=== PATIENT | male | born 1970 | race Caucasian/White ===

== ENCOUNTER 2019-09-01 16:32 | Emergency (ER) | payer BC, SELFPAY ==
[~2019-09-01] VITALS: Ht 177.8 cm; Wt 77.1 kg
--- NOTE | 2019-09-01 16:32 | NUR ---
Patient to ER bed tent for evaluation.
--- NOTE | 2019-09-01 16:33 | NUR ---
Patient is a 49 year old male that is awake, alert, and oriented x4. He denies previous medical history and reports only eye surgery as a youth. Patient arrived after being told by his PCP to be evaluated. Patient reports returning from [place] 2 weeks ago and that he has had flu symptoms with no relief x3 weeks. Patient was recently tested by his PCP and told he was positive for Influenza A and B. Patient is complaining of intermittent SOB and subjective fever going as high as 98.9 that was relieved by ice packs. Patient also reports loss of taste and smell x2 weeks, intermittent left sided flank pain that feels like a cramp today. Pain is currently at 0/10. Vitals are WNL, no signs or symptoms of distress noted.
[2019-09-01 16:36] VITALS: BP_SYST 152
--- NOTE | 2019-09-01 17:12 | NUR ---
Patient ambulated to radiology, accompanied by tech.
--- NOTE | 2019-09-01 17:20 | NUR ---
Returned from radiology, back to tent.
--- NOTE | 2019-09-01 17:30 | NUR ---
ER Dr. Reich at bedside examining patient.
[2019-09-01 18:02] VITALS: BP_SYST 144
--- NOTE | 2019-09-01 18:02 | NUR ---
Patient given written and verbal discharge instructions and verbalizes understanding. ER MD discussed with patient the results and treatment provided. Patient in stable condition. ID arm band removed. Rx of tylenol, albuterol, tamiflu given. Patient educated on pain management and to follow up with PMD. Pain Scale 0/10. Opportunity for questions provided and answered. Medication side effect fact sheet provided.
== END 2019-09-01 18:02 | disposition home or self-care (01) ==
LOC: SED 16:32
DX: J11.1 Influenza due to unidentified influenza virus with other respiratory manifestations (principal); R10.9 Unspecified abdominal pain; Z03.818 Encounter for observation for suspected exposure to other biological agents ruled out; Z20.828 Contact with and (suspected) exposure to other viral communicable diseases
CPT/HCPCS: 71046; 99284; U0002; 99283